=== PATIENT | male | born 1990 | race Caucasian/White ===

== ENCOUNTER 2024-08-12 14:01 | Emergency (ER) | payer OTHER, SELFPAY ==
--- OUTSIDE RECORDS SUMMARY | 2024-08-12 14:07 | XMS_ITS | Clinical Summary ---
Author Organization [facility] [address] [place] [address] Care Team Providers Care Licensed Professional Counselor Name Role Phone Unavailable Primary Care Provider Unavailabl e Social History Tobacco Use Types Packs/Day Years Used Date Smoking Tobacco: Never Assessed Comments Unknown Sex and Gender Information Value Date Recorded Sex Assigned at Not on file Legal Sex Unknown 07/27/2019 1:54 AM PST Gender Identity Not on file Sexual Orientation Not on file Plan of Treatment Not on file
--- OUTSIDE RECORDS SUMMARY | 2024-08-12 14:07 | XMS_ITS | Referral Summary ---
Author Organization [facility] [place] [address] [place] [address] Care Team Providers Care Data Warehouse Manager Name Role Phone Unavailable Primary Care Provider [...]
--- OUTSIDE RECORDS SUMMARY | 2024-08-12 14:07 | XMS_ITS ---
Author Organization [facility] Address [address] [place] [address] Care Team Providers Care Jig And Fixture Builder Name Role Phone Unavailable Unavailable Unavailable Surgery Details Not on file Complications Check Surgery Details section. Procedure Estimated Blood Loss Check Surgery Details section. Procedure Findings Check Surgery Details section. Procedure Specimens Taken Check Surgery Details section.
--- OUTSIDE RECORDS SUMMARY | 2024-08-12 14:07 | XMS_ITS | CCD ---
Author Organization [facility] [address] [place] [address] Care Team Providers Care Car Deliverer Name Role Phone Unavailable Primary Care Provider [...]
--- OUTSIDE RECORDS SUMMARY | 2024-08-12 14:07 | XMS_ITS | Encounter Summary ---
Author Organization [facility] [address] [place] [address] Care Team Providers Care Laboratory Technologist Name Role Phone Unavailable Primary Care Provider Unavailabl e Prior Encounters Date Type Department Care Team Description 07/23/2019 Converted 13x Documents [facility] [address] [place] [address] <No scans attached> 07/23/2019 Converted 13x Documents [facility] [address] [place] [address] <No scans attached> Plan of Treatment Not on file Visit Diagnoses Not on file
[2024-08-12 15:28] VITALS: BP 138/76; PULSE 71; RESP 18; TEMP 37; O2SAT 100
[2024-08-12 15:48] LABS: EDCOVIDSCREEN Negative (Negative); EDINFLUASCREEN Positive (Negative); EDINFLUBSCREEN Negative (Negative); EDSTREPNEGPOS1 Negative (Negative)
--- NOTE | 2024-08-12 16:41 | ED_ITS ---
HPI - General Adult General Chief complaint: Upper Respiratory Infection Stated complaint: fever and congestion Time Seen by Provider: 08/12/24 16:10 Source: patient Mode of arrival: ambulatory Limitations: no limitations History of Present Illness HPI narrative: Ricki is a 33 year old male here with a 2 day history of cough, fever, congestion, body aches, fatigue, and vomiting. He is here with two children today. He denies sore throat or ear pain. Denies diarrhea. All other systems reviewed and negative except as noted in HPI and ROS. Related Data Allergies Allergy/AdvReac Type Severity Reaction Status Date / Time Penicillins Allergy Intermediate Rash Verified 08/12/24 16:11 Review of Systems Review of Systems: CONSTITUTIONAL: Reports fever. Denies chills. Denies sweats. +fatigue EYES: Denies visual changes, redness, or discharge. ENT: Reports rhinorrhea and congestion. Denies sore throat or otalgia. CARDIOVASCULAR: Denies chest pain, palpitations, or edema. RESPIRATORY: Reports cough. Denies dyspnea. GASTROINTESTINAL: Denies abdominal pain or diarrhea. Reports vomiting, nausea, and decreased appetite. GENITOURINARY: Denies dysuria or hematuria. SKIN: Denies rash or itching. MUSCULOSKELETAL: Denies back pain, joint pain, or myalgia. NEUROLOGIC: Denies numbness or weakness. PSYCHIATRIC: Denies anxiety or depression. All other systems reviewed are negative, except as documented in HPI. PMFSH Comments At time of signature, I have reviewed and agree with nursing past medical, surgical, social and family history unless otherwise noted. Please see nursing chart for further information. There is no relevant family history pertinent to the presenting complaint. Exam Narrative: GENERAL: This is a well-nourished, well-developed patient, in no apparent distress. He appears acutely ill. HEAD: normocephalic, atraumatic. EYES: Sclera clear/white. Vision is grossly intact. EARS: External ears normal, auditory canals clear and without drainage. TMs slightly erythematous without perforation. Hearing grossly intact. NOSE: External nose normal, nares with redness and rhinorrhea. THROAT: Mucous membranes moist, posterior pharynx erythematous with no exudate or enlarged tonsils noted. NECK: Neck supple, non-tender without lymphadenopathy. CARDIOVASCULAR: Regular rhythm without murmurs, gallops, or rubs. RESPIRATORY: Clear to auscultation. Breath sounds equal bilaterally. No wheezes, rales, or rhonchi. SKIN: warm, Dry, intact with no suspicious lesions or rash, good texture and turgor. NEURO: awake, alert, and oriented to person, place and time. EXTREMITIES: No joint tenderness, effusion, or edema noted. Course Course Emergency Course: Patient is aware of diagnosis, understands and agrees to treatment plan. Anticipatory guidance was given. Patient agrees to follow-up as directed and is aware of reasons to seek care at the emergency department. Please be advised this is a medical document. It is intended for [id number] communication. It is written in medical language and may contain unfamiliar abbreviations or verbiage. Medical documents are intended to carry relevant information, facts as evident, and the clinical opinion of the practitioner at the time of the encounter. This report may have been done utilizing a voice recognition system. Attempts have been made to correct errors. However, there may be uncorrected grammatical, spelling, and recognition errors present. The file time of this note does not necessarily represent the time the patient was seen. Level of Care: Express Care Visit Vital Signs Vital signs: Vital Signs Temperature 37.0 C 08/12/24 15:28 Pulse Rate 71 08/12/24 15:28 Respiratory Rate 18 08/12/24 15:28 Blood Pressure 138/76 08/12/24 15:28 Pulse Oximetry 100 08/12/24 15:28 Oxygen Delivery Room Air 08/12/24 15:28 Temperature 37.0 C 08/12/24 15:28 Pulse Rate 71 08/12/24 15:28 Respiratory Rate 18 08/12/24 15:28 Blood Pressure 138/76 08/12/24 15:28 Pulse Oximetry 100 08/12/24 15:28 Oxygen Delivery Room Air 08/12/24 15:28 reviewed. Medical Decision Making MDM Narrative Medical decision making narrative: Results of flu test reviewed with patient. Patient was positive for Flu A, and negative for Flu B, Strep, and COVID. Discussed physical exam findings with patient and reviewed prescriptions. Advised supportive measures and reviewed signs and symptoms for patient to return to clinic or go to the ER. Patient verbalized understanding. Differential Diagnosis Differential Diagnosis: Flu vs COVID vs other URI Vital Signs Vital Signs: Vital Signs Temperature 37.0 C 08/12/24 15:28 Pulse Rate 71 08/12/24 15:28 Respiratory Rate 18 08/12/24 15:28 Blood Pressure 138/76 08/12/24 15:28 Pulse Oximetry 100 08/12/24 15:28 Oxygen Delivery Room Air 08/12/24 15:28 Temperature 37.0 C 08/12/24 15:28 Pulse Rate 71 08/12/24 15:28 Respiratory Rate 18 08/12/24 15:28 Blood Pressure 138/76 08/12/24 15:28 Pulse Oximetry 100 08/12/24 15:28 Oxygen Delivery Room Air 08/12/24 15:28 Lab Data Labs: Lab Results 08/12/24 Range/Units 15:46 POC Influenza A Ag Positive (Negative) POC Influenza B Ag Negative (Negative) POC SARS CoV-2 Ag Negative (Negative) POC Grp A Strep Screen Negative (Negative) reviewed. Discharge Plan Discharge Clinical Impression: Influenza A Patient Disposition: Home, Self-Care Condition: Stable Instructions: Antibiotic Form, Influenza (ED) Additional Instructions: You were diagnosed today with influenza A. Cover all coughs. Push fluids and eat foods that contain fluid such as applesauce. Rest. Wear a mask when leaving the house until you are fever free for 24 hours. Avoid going places where you may come in contact with people who are immunocompromised. Do not share eating or drinking utensils. Use good handwashing techniques. You may use [id number] Tylenol and/or ibuprofen by mouth as needed as directed on packaging for pain and fever. Read packing of all over the counter medications and take them only as recommended on the label. Take medications as prescribed. Follow printed instructions provided. Follow-up with primary care provider. Go to the ER for any worsening symptoms or concerns. Patient Language: Latvian Prescriptions: New ondansetron 4 mg tablet,disintegrating 4 mg PO Q6H PRN (Reason: nausea and vomiting) Qty: 10 0RF benzonatate 200 mg capsule 200 mg PO TID PRN (Reason: cough) Qty: 20 0RF oseltamivir [Tamiflu] 75 mg capsule 75 mg PO Q12H 5 Days Qty: 10 0RF Follow-up/Referrals: UNKNOWN,DOCTOR [Primary Care Provider] - Stand Alone Forms: Work/School Release IP Time of Disposition: 16:20
== END 2024-08-12 16:35 | disposition home or self-care (01) ==
PROVIDERS: Emergency Provider Nurse Practitioner
DX: J10.1 Influenza due to other identified influenza virus with other respiratory manifestations (principal); Z20.822 Contact with and (suspected) exposure to COVID-19
CPT/HCPCS: 87081; 87426; 87804; 87880; 99213; G0463